=== PATIENT | female | born 1930 | race Caucasian/White ===

== ENCOUNTER 2017-09-06 10:39 | Inpatient (IN) | payer MEDICARE ==
[~2017-09-06] VITALS: Ht 165.1 cm; Wt 49.9 kg
[2017-09-06 11:08] VITALS: BP 142/71
[2017-09-06 11:56] LABS: BASOPHILS % (AUTO) 0.4 % (0.0-2.0); EOSINOPHILS % (AUTO) 0.1 % (0.0-3.0); LYMPHOCYTES % (AUTO) 13.9 % (20.0-45.0); MEAN CORPUSCULAR HEMOGLOBIN 28.3 PG (27.0-31.0); MEAN CORPUSCULAR HGB CONC 31.6 G/DL (32.0-36.0); MEAN CORPUSCULAR VOLUME 90 FL (80-99); MEAN PLATELET VOLUME 6.3 FL (6.5-10.1); MONOCYTES % (AUTO) 3.6 % (1.0-10.0); PLATELET COUNT 250 K/UL (150-450); RED BLOOD COUNT 4.76 M/UL (4.20-5.40); RED CELL DISTRIBUTION WIDTH 13.5 % (11.6-14.8); WHITE BLOOD COUNT 9.4 K/UL (4.8-10.8)
[2017-09-06 12:11] LABS: PROTHROMBIN TIME 10.9 SEC (9.30-11.50)
[2017-09-06 12:49] LABS: ALANINE AMINOTRANSFERASE 14 U/L (12-78); ALBUMIN/GLOBULIN RATIO 0.8 (1.0-2.7); ANION GAP 9 (5-15); ASPARTATE AMINO TRANSFERASE 16 U/L (15-37); CALCIUM 9.3 MG/DL (8.5-10.1); CARBON DIOXIDE 30 MMOL/L (21-32); CHLORIDE 102 MMOL/L (98-107); LIPASE 386 U/L (73-393); POTASSIUM 3.5 MMOL/L (3.5-5.1); SODIUM 141 MMOL/L (136-145); TOTAL PROTEIN 7.4 G/DL (6.4-8.2)
[2017-09-06 13:15] VITALS: BP 151/63
[2017-09-06 13:24] LABS: APPEARANCE,URINE SLIGHTLY CLOUDY; KETONES,URINE NEGATIVE (NEGATIVE); LEUKOCYTE ESTERASE ,URINE NEGATIVE (NEGATIVE); NITRITE,URINE NEGATIVE (NEGATIVE); PH,URINE 7 (4.5-8.0); PROTEIN,URINE NEGATIVE (NEGATIVE); UROBILINOGEN,URINE NORMAL MG/DL (0.0-1.0)
[2017-09-06 14:13] LABS: SQUAMOUS EPITHELIAL CELL,UR MODERATE /LPF (NONE/OCC); WBC,URINE 0-2 /HPF (0 - 2)
[2017-09-06 14:14] LABS: BACTERIA,URINE FEW /HPF; MUCUS,URINE FEW /LPF (NONE/OCC)
--- NOTE | 2017-09-06 14:34 | Diagnostic Imaging Report ---
Indication: Abdominal pain Technique: Continuous helical transaxial imaging of the abdomen and pelvis was obtained from the lung bases to the pubic symphysis during intravenous contrast administration. Coronal 2-D reformats were also obtained. Study obtained in a Siemens sensation [address] Total Dose length Product (DLP): [address] Dose Index Volume (CTDIvol): 11.9, 0.15 mGy Comparison: None Findings: Lung bases are clear. The liver and spleen, pancreas, gallbladder appear unremarkable. No adrenal mass seen. There are a few small bilateral renal cysts. The right kidney is malrotated. The ureters are not well seen but there is no definite hydronephrosis. Arterial calcifications are present. There is a small right inguinal hernia containing fat. There is an abdominal wall mesh anteriorly in the lower part of the abdomen. Old fractures are noted involving the left ilium and pubis. Bones are osteopenic. Diverticula demonstrated within the sigmoid colon. There is thickening of the wall of the rectum and perirectal soft tissue stranding small right Hutch diverticula noted involving the urinary bladder. Is there is severe compression fracture deformity of the T12 vertebra likely old. Hemangioma the L1 vertebra noted with linear striations. Anterolisthesis of L4 on 5 with narrowing of the disc and vacuum, demonstrated. Hypertrophied facets noted in the lower lumbar spine. Impression: Evidence of a proctitis with rectal wall thickening and perirectal inflammation. Please correlate clinically. Extensive sigmoid diverticulosis. Right bladder diverticulum. Atherosclerotic disease Old severe T12 vertebral compression fracture. Osteoporosis L1 hemangioma. . Old pelvic trauma. Evidence of previous lower anterior abdominal wall hernia repair. A small right inguinal hernia containing fat. Malrotation of the right kidney. The CT scanner at [facility] is accredited by the [employer] and the scans are performed using dose optimization techniques as appropriate to a performed exam including Automatic Exposure control.
--- NOTE | 2017-09-06 14:58 | Emergency Room Report ---
History of Present Illness General Chief Complaint: Abdominal Pain Source: Patient, Significant Other Present Illness HPI This patient presents with recurrent vomiting and diarrhea for the past 24 hours. The patient states that she vomited about 20 times in the past 12 hours. She states that she was unable to sleep. She was unable to tolerate breakfast this morning. She also has had abdominal pain in the right lower quadrant. She denies fevers or chills. She states that she is significantly improved right now. She has not tried to take anything orally since earlier this morning. She denies dysuria or hematuria. She denies chest pain or shortness of breath. She has no other complaints. Allergies: Coded Allergies: No Known Allergies (Unverified , 09/06/17) Patient History Past Medical History: see triage record, HTN, dementia Social History: Denies: smoking, alcohol use, drug use Last Menstrual Period: postmenapause Now: No Reviewed Nursing Documentation: PMH: Agreed, PSxH: Agreed Nursing Documentation-PMH Past Medical History: No History, Except For Hx Cardiac Problems: No Hx Hypertension: Yes Hx Pacemaker: No Hx Asthma: No Hx COPD: No Hx Diabetes: No Hx Cancer: No Hx Gastrointestinal Problems: No Hx Dialysis: No History Of Psychiatric Problem: No Hx Neurological Problems: No Hx Cerebrovascular Accident: No Hx Seizures: No Review of Systems All Other Systems: negative except mentioned in HPI Physical Exam Vital Signs Date Time Temp Pulse Resp B/P (MAP) Pulse Ox O2 Delivery O2 Flow Rate FiO2 09/06/17 10:59 97.0 54 12 139/72 97 Room Air Sp02 EP Interpretation: reviewed, normal General Appearance: no apparent distress, alert, GCS 15, non-toxic Head: normocephalic, atraumatic Eyes: bilateral eye normal inspection, bilateral eye PERRL ENT: hearing grossly normal, normal pharynx, no angioedema, normal voice Neck: full range of motion, supple/symm/no masses Respiratory: chest non-tender, lungs clear, normal breath sounds, speaking full sentences Cardiovascular #1: regular rate, rhythm, no edema Gastrointestinal: normal bowel sounds, soft, non-distended, no guarding, no rebound, tenderness - RLQ ttp Rectal: deferred Musculoskeletal: back normal, gait/station normal, normal range of motion, non- tender Neurologic: alert, oriented x3, responsive, motor strength/tone normal, sensory intact, speech normal Psychiatric: mood/affect normal, no suicidal/homicidal ideation Skin: normal color, no rash, warm/dry, well hydrated Medical Decision Making Diagnostic Impression: Primary Impression: Gastroenteritis Additional Impression: Proctitis ER Course This 86-year-old female presents with nausea, vomiting and abdominal pain. She is found to have a proctitis on CT of abdomen and pelvis. She is given IV Cipro and Flagyl and IV fluids. She will be admitted for further evaluation, treatment and monitoring on the medical surgical floor. Laboratory Tests Test 09/06/17 11:09 09/06/17 12:58 White Blood Count 9.4 K/UL (4.8-10.8) Red Blood Count 4.76 M/UL (4.20-5.40) Hemoglobin 13.5 G/DL (12.0-16.0) Hematocrit 42.7 % (37.0-47.0) Mean Corpuscular Volume 90 FL (80-99) Mean Corpuscular Hemoglobin 28.3 PG (27.0-31.0) Mean Corpuscular Hemoglobin Concent 31.6 G/DL (32.0-36.0) L Red Cell Distribution Width 13.5 % (11.6-14.8) Platelet Count 250 K/UL (150-450) Mean Platelet Volume 6.3 FL (6.5-10.1) L Neutrophils (%) (Auto) 82.0 % (45.0-75.0) H Lymphocytes (%) (Auto) 13.9 % (20.0-45.0) L Monocytes (%) (Auto) 3.6 % (1.0-10.0) Eosinophils (%) (Auto) 0.1 % (0.0-3.0) Basophils (%) (Auto) 0.4 % (0.0-2.0) Prothrombin Time 10.9 SEC (9.30-11.50) Prothrombin Time INR 1.0 (0.9-1.1) PTT 26 SEC (23-33) Sodium Level 141 MMOL/L (136-145) Potassium Level 3.5 MMOL/L (3.5-5.1) Chloride Level 102 MMOL/L (98-107) Carbon Dioxide Level 30 MMOL/L (21-32) Anion Gap 9 (5-15) Blood Urea Nitrogen 24 mg/dL (7-18) H Creatinine 1.0 MG/DL (0.55-1.30) Estimate Glomerular Filtration Rate mL/min (>60) Glucose Level 115 MG/DL (74-106) H Lactic Acid Level 1.40 mmol/L (0.66-2.22) Calcium Level 9.3 MG/DL (8.5-10.1) Total Bilirubin 0.5 MG/DL (0.2-1.0) Aspartate Amino Transferase (AST) 16 U/L (15-37) Alanine Aminotransferase (ALT) 14 U/L (12-78) Alkaline Phosphatase 61 U/L (46-116) Total Protein 7.4 G/DL (6.4-8.2) Albumin 3.4 G/DL (3.4-5.0) Globulin 4.0 g/dL Albumin/Globulin Ratio 0.8 (1.0-2.7) L Lipase 386 U/L (73-393) Urine Color Pale yellow Urine Appearance Slightly cloudy Urine pH 7 (4.5-8.0) Urine Specific [place] 1.015 (1.005-1.035) Urine Protein Negative (NEGATIVE) Urine Glucose (UA) Negative (NEGATIVE) Urine Ketones Negative (NEGATIVE) Urine Occult Blood 1+ (NEGATIVE) H Urine Nitrite Negative (NEGATIVE) Urine Bilirubin Negative (NEGATIVE) Urine Urobilinogen Normal MG/DL (0.0-1.0) Urine Leukocyte Esterase Negative (NEGATIVE) Urine RBC 2-4 /HPF (0 - 2) H Urine WBC 0-2 /HPF (0 - 2) Urine Squamous Epithelial Cells Moderate /LPF (NONE/OCC) H Urine Bacteria Few /HPF (NONE) Urine Mucus Few /LPF (NONE/OCC) H EKG Diagnostic Results Rate: bradycardiac Rhythm: other - S.merlin ST Segments: no acute changes Rhythm Strip Diag. Results EP Interpretation: yes Rate: 50's Rhythm: no PVC's, no ectopy, other - S.emrlin CT/MRI/US Diagnostic Results CT/MRI/US Diagnostic Results : Imaging Test Ordered: CT abd/pelvis Impression Evidence of a proctitis with rectal wall thickening and perirectal inflammation. Please correlate clinically. Extensive sigmoid diverticulosis. Right bladder diverticulum. Atherosclerotic disease Old severe T12 vertebral compression fracture. Osteoporosis L1 hemangioma. . Old pelvic trauma. Evidence of previous lower anterior abdominal wall hernia repair. A small right inguinal hernia containing fat. Malrotation of the right kidney. Last Vital Signs Date Time Temp Pulse Resp B/P (MAP) Pulse Ox O2 Delivery O2 Flow Rate FiO2 09/06/17 11:08 97.0 52 22 142/71 99 Room Air Disposition: ADMITTED INPATIENT Condition: Stable Referrals: CAR MARTINEZ (PCP) BE PUCKETT D.O. Sep 06, 2017 14:58
[2017-09-06 16:14] VITALS: BP 151/63
[2017-09-06] MEDS ORDERED: UNOBMED (17:00)
[2017-09-06] MEDS ORDERED: LORazepam Inj 2mg/ml 1ml IV ONE (17:00)
[2017-09-06] MEDS ORDERED: LEXAPRO10 MG ORAL (17:05)
[2017-09-06] MEDS ORDERED: LUMIGAN2.5 ML BOTH EYES ×2 (17:05→20:10)
[2017-09-06] MEDS ORDERED: VITAMIN D-32000 UNI2 PO (17:05)
[2017-09-06] MEDS ORDERED: NUEDEXTA 20-101 EAC1 PO (17:05)
[2017-09-06] MEDS ORDERED: BISACODYL5 MG ORAL (17:05)
[2017-09-06] MEDS ORDERED: POLYETHYLENE GL17 GM ORAL (17:05)
[2017-09-06] MEDS ORDERED: CALCIUM 600 +1 EA15 PO (17:05)
[2017-09-06] MEDS ORDERED: VITAMIN C500 M1 ORAL (17:05)
[2017-09-06] MEDS ORDERED: VITAMIN B122500 MCG PO (17:05)
[2017-09-06] MEDS ORDERED: TRAZODONE HCL150 MG ORAL (17:05)
--- NOTE | 2017-09-06 19:42 | Geriatric Progress Note ---
Subjective Interval Events 86 y/o with diarrhea x 3, vomiting x 4 starting last night. No known fever, chills. No others who ate with her with similar sxs. Currently with aphasic incoherent speech c/w baseline. No overt distress. Unable to answer questions in coherent fashion. PMH: 3-4 year hx of increasing anxiety, cognitive changes, depressive changes. Recently placed on Nuedexta, Escitalopram with some improvement. Hx of SBO several years ago, associated with hernia, repaired with mesh. 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 Initially, presented in 06/14 with c/o rectal pain, found to have coccydynia and stool impaction. Bowel tx initiated, donut cushion utilized. Sxs improved considerably. Today findings in ER of proctitis. Given IVF, admitted for GI evaluation, Dr. Shaw consulted. Meds: Vit C 500mg daily. Lumigan 0.01% 1 gtt OU daily. Bisacodyl 10mg qhs. Bone Essentials 2 caps daily. Cholecalciferol 1000u daily. B12 1000mcg daily. Nuedexta 20/10 bid. Donepezil 5mg qhs. Escitalopram 10mg daily. MiraLax 17gm bid. Trazodone 25-50mg qhs. PE: Chest clear. CV RR Abd benign Ext no edema Imp: ? proctitis - ? mechanical, infectious, inflammatory. Await GI eval. Continue usual meds. Discussed in detail with dtr. Full code. Dictated #[id number]. Geriatric Geriatric Last 24 Hour Vital Signs Date Time Temp Pulse Resp B/P (MAP) Pulse Ox O2 Delivery O2 Flow Rate FiO2 09/06/17 17:13 97.0 55 13 151/63 100 Room Air 09/06/17 16:14 97.0 55 13 151/63 100 Room Air 09/06/17 13:15 97.3 55 12 151/63 100 Room Air 09/06/17 11:08 97.0 52 22 142/71 99 Room Air 09/06/17 10:59 97.0 54 12 139/72 97 Room Air Intake and Output 09/06/17 09/07/17 19:00 07:00 Output Total 50 ml Balance -50 ml Output Emesis 50 ml Laboratory Tests Test 09/06/17 11:09 09/06/17 12:58 White Blood Count 9.4 K/UL (4.8-10.8) Red Blood Count 4.76 M/UL (4.20-5.40) Hemoglobin 13.5 G/DL (12.0-16.0) Hematocrit 42.7 % (37.0-47.0) Mean Corpuscular Volume 90 FL (80-99) Mean Corpuscular Hemoglobin 28.3 PG (27.0-31.0) Mean Corpuscular Hemoglobin Concent 31.6 G/DL (32.0-36.0) L Red Cell Distribution Width 13.5 % (11.6-14.8) Platelet Count 250 K/UL (150-450) Mean Platelet Volume 6.3 FL (6.5-10.1) L Neutrophils (%) (Auto) 82.0 % (45.0-75.0) H Lymphocytes (%) (Auto) 13.9 % (20.0-45.0) L Monocytes (%) (Auto) 3.6 % (1.0-10.0) Eosinophils (%) (Auto) 0.1 % (0.0-3.0) Basophils (%) (Auto) 0.4 % (0.0-2.0) Prothrombin Time 10.9 SEC (9.30-11.50) Prothromb Time International Ratio 1.0 (0.9-1.1) Activated Partial Thromboplast Time 26 SEC (23-33) Sodium Level 141 MMOL/L (136-145) Potassium Level 3.5 MMOL/L (3.5-5.1) Chloride Level 102 MMOL/L (98-107) Carbon Dioxide Level 30 MMOL/L (21-32) Anion Gap 9 (5-15) Blood Urea Nitrogen 24 mg/dL (7-18) H Creatinine 1.0 MG/DL (0.55-1.30) Estimat Glomerular Filtration Rate mL/min (>60) Glucose Level 115 MG/DL (74-106) H Lactic Acid Level 1.40 mmol/L (0.66-2.22) Calcium Level 9.3 MG/DL (8.5-10.1) Total Bilirubin 0.5 MG/DL (0.2-1.0) Aspartate Amino Transf (AST/SGOT) 16 U/L (15-37) Alanine Aminotransferase (ALT/SGPT) 14 U/L (12-78) Alkaline Phosphatase 61 U/L (46-116) Total Protein 7.4 G/DL (6.4-8.2) Albumin 3.4 G/DL (3.4-5.0) Globulin 4.0 g/dL Albumin/Globulin Ratio 0.8 (1.0-2.7) L Lipase 386 U/L (73-393) Urine Color Pale yellow Urine Appearance Slightly cloudy Urine pH 7 (4.5-8.0) Urine Specific [place] 1.015 (1.005-1.035) Urine Protein Negative (NEGATIVE) Urine Glucose (UA) Negative (NEGATIVE) Urine Ketones Negative (NEGATIVE) Urine Occult Blood 1+ (NEGATIVE) H Urine Nitrite Negative (NEGATIVE) Urine Bilirubin Negative (NEGATIVE) Urine Urobilinogen Normal MG/DL (0.0-1.0) Urine Leukocyte Esterase Negative (NEGATIVE) Urine RBC 2-4 /HPF (0 - 2) H Urine WBC 0-2 /HPF (0 - 2) Urine Squamous Epithelial Cells Moderate /LPF (NONE/OCC) H Urine Bacteria Few /HPF (NONE) Urine Mucus Few /LPF (NONE/OCC) H Height (Feet): 5 Height (Inches): 0.00 Weight (Pounds): 110 CAR MARTINEZ Sep 06, 2017 19:42
[2017-09-06 20:00] VITALS: BP 134/81
[2017-09-06] MEDS ORDERED: Latanoprost 0.005% Opth 2.5ml Soln BOTH EYES SCH (21:00)
[2017-09-06 21:18] VITALS: BP 134/81
[2017-09-06] MEDS: Ramelteon 8mg tab (Approved for Delirium use only) ORAL SCH (22:12)
[2017-09-06] MEDS: Nuedexta Capsule 20/10mg ORAL SCH (22:12)
[2017-09-06] MEDS: LUMIGAN 0.01% BOTH EYES SCH (22:12)
[2017-09-06] MEDS: Donepezil 5mg Tab ORAL SCH (22:13)
[2017-09-07 04:00] VITALS: BP 155/75
--- NOTE | 2017-09-07 07:59 | General Progress Note ---
Assessment/Plan Assessment/Plan GI Consult Dictated Assessment - Chronic constipation - Acute/ resolved N/V/D - ? gastroeteritis - h/o rectal stool impaction - rectal inflammation - possibly solitary rectal ulcer - Dementia Recommendation - po diet - as tolerated - hog scraper Mirlax - follow symptoms - Flex sig - will try to schedule for tomorrow AM Subjective Allergies: Coded Allergies: No Known Allergies (Unverified , 09/06/17) Objective Last 24 Hour Vital Signs Date Time Temp Pulse Resp B/P (MAP) Pulse Ox O2 Delivery O2 Flow Rate FiO2 09/07/17 04:00 97.8 53 16 155/75 96 Room Air 09/06/17 21:18 98.7 58 18 134/81 96 Room Air 09/06/17 20:00 98.7 58 18 134/81 96 Room Air 09/06/17 17:13 97.0 55 13 151/63 100 Room Air 09/06/17 16:14 97.0 55 13 151/63 100 Room Air 09/06/17 13:15 97.3 55 12 151/63 100 Room Air 09/06/17 11:08 97.0 52 22 142/71 99 Room Air 09/06/17 10:59 97.0 54 12 139/72 97 Room Air Laboratory Tests 09/06/17 11:09: White Blood Count 9.4, Red Blood Count 4.76, Hemoglobin 13.5, Hematocrit 42.7, Mean Corpuscular Volume 90, Mean Corpuscular Hemoglobin 28.3, Mean Corpuscular Hemoglobin Concent 31.6L, Red Cell Distribution Width 13.5, Platelet Count 250, Mean Platelet Volume 6.3L, Neutrophils (%) (Auto) 82.0H, Lymphocytes (%) (Auto) 13.9L, Monocytes (%) (Auto) 3.6, Eosinophils (%) (Auto) 0.1, Basophils (%) (Auto ) 0.4, Prothrombin Time 10.9, Prothromb Time International Ratio 1.0, Activated Partial Thromboplast Time 26, Sodium Level 141, Potassium Level 3.5, Chloride Level 102, Carbon Dioxide Level 30, Anion Gap 9, Blood Urea Nitrogen 24H, Creatinine 1.0, Estimat Glomerular Filtration Rate , Glucose Level 115H, Lactic Acid Level 1.40, Calcium Level 9.3, Total Bilirubin 0.5, Aspartate Amino Transf (AST/SGOT) 16, Alanine Aminotransferase (ALT/SGPT) 14, Alkaline Phosphatase 61, Total Protein 7.4, Albumin 3.4, Globulin 4.0, Albumin/Globulin Ratio 0.8L, Lipase 386 09/06/17 12:58: Urine Color Pale yellow, Urine Appearance Slightly cloudy, Urine pH 7, Urine Specific [place] 1.015, Urine Protein Negative, Urine Glucose (UA) Negative, Urine Ketones Negative, Urine Occult Blood 1+H, Urine Nitrite Negative, Urine Bilirubin Negative, Urine Urobilinogen Normal, Urine Leukocyte Esterase Negative , Urine RBC 2-4H, Urine WBC 0-2, Urine Squamous Epithelial Cells ModerateH, Urine Bacteria Few, Urine Mucus FewH Height (Feet): 5 Height (Inches): 0.00 Weight (Pounds): 110 KRISTIAN BOB Sep 07, 2017 07:59
[2017-09-07 08:00] VITALS: BP 132/66
[2017-09-07 08:41] LABS: BASOPHILS % (AUTO) 0.6 % (0.0-2.0); EOSINOPHILS % (AUTO) 1.3 % (0.0-3.0); MEAN CORPUSCULAR HEMOGLOBIN 29.2 PG (27.0-31.0); MEAN CORPUSCULAR HGB CONC 32.5 G/DL (32.0-36.0); MEAN CORPUSCULAR VOLUME 90 FL (80-99); MEAN PLATELET VOLUME 6.6 FL (6.5-10.1); MONOCYTES % (AUTO) 8.6 % (1.0-10.0); NEUTROPHILS % (AUTO) 68.5 % (45.0-75.0); PLATELET COUNT 195 K/UL (150-450); RED BLOOD COUNT 3.96 M/UL (4.20-5.40); RED CELL DISTRIBUTION WIDTH 13.6 % (11.6-14.8); WHITE BLOOD COUNT 6.2 K/UL (4.8-10.8)
[2017-09-07] MEDS: LUMIGAN 0.01% BOTH EYES SCH ×2 (09:00→20:07)
[2017-09-07] MEDS: Nuedexta Capsule 20/10mg ORAL SCH ×2 (09:00→20:08)
[2017-09-07 09:25] LABS: ANION GAP 8 (5-15); CALCIUM 8.3 MG/DL (8.5-10.1); CARBON DIOXIDE 27 MMOL/L (21-32); CHLORIDE 108 MMOL/L (98-107); CREATININE 0.9 MG/DL (0.55-1.30); POTASSIUM 3.2 MMOL/L (3.5-5.1); SODIUM 143 MMOL/L (136-145)
--- NOTE | 2017-09-07 12:00 | History and Physical Report ---
DATE OF ADMISSION: 09/06/2017 IDENTIFYING DATA: The patient is an 86-year-old woman, who developed diarrhea and vomiting and was brought to the emergency room. HISTORY OF PRESENT ILLNESS: This is a patient with a history of significant cognitive dysfunction with associated anxiety, episodic agitation, and associated behavioral dysfunction. The patient was first seen in the office after moving from [place] in May of this year, at which time she had been in [facility] facility for approximately two weeks. She complained of pain in her rectal area. On examination at that time, the patient was noted to have variable ability to concentrate and respond, but she was at times able to follow simple directions and cross the midline. She was noted to have tenderness in the coccyx area and on rectal examination, was noted to have significant coccydynia. In addition, she had a large amount of stool, which was soft, present in the rectum. As a result, the patient was put on a bowel regimen to improve irregular bowel movements and also she was recommended to have a doughnut cushion in order to diminish her symptoms. Over the course of a number of weeks, apparently the patient improved considerably, however, she continued to have a significant amount of lability and anxiety and her medication regimen has included the addition of Nuedexta as well as antidepressant, Lexapro. With this, her behavior apparently has improved somewhat. The patient was also treated for urinary tract infection. Apparently over the last week, the patient's daughter has been visiting her from [place]. She reports that the patient has been physically relatively robust, although with a fair amount of anxiety and had been eating normal. Last evening, the patient apparently began to develop both recurrent vomiting of undigested food as well as recurrent diarrhea. Because of the reported vomiting and diarrhea, the patient was asked to present to the emergency department at [facility] for further evaluation. In the emergency department, the patient was noted to have somewhat dysphasic and incoherent speech consistent with her baseline. Detailed history or even review of systems was not readily obtainable from the patient because of her language and cognitive deficits. Evaluation included laboratory work, which revealed no evidence of leukocytosis and fairly normal chemistry and normal urinalysis. However, an abdominopelvic CT scan was done and this revealed several abnormalities including evidence of proctitis with rectal wall thickening and perirectal inflammation, extensive sigmoid diverticulosis, right bladder diverticulum, arteriosclerotic disease, an old severe T12 vertebral compression fracture, osteoporosis, a left hemangioma, previous lower anterior abdominal wall hernia repair, and a small right inguinal hernia containing fat, malrotation of the right kidney, old pelvic trauma with pelvic fractures, which were healed, and it was felt that the patient's symptoms might be associated with the radiologically apparent proctitis. The patient was therefore admitted for further evaluation and treatment. In the emergency room, the patient was treated also with intravenous hydration and the administration of metronidazole and ciprofloxacin. PAST MEDICAL HISTORY: The patient's past medical history as based on previous evaluations and also on additional history obtained from the patient's daughter at this time includes a [id number]-lt-dwst-year history of increasing anxiety, cognitive changes, and depressive changes. There is a history of an episode of small bowel obstruction several years ago apparently associated with a lower abdominal hernia, which subsequently was repaired with a mesh. 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 Other details of the patient's medical history are not currently available at this time. CURRENT MEDICATIONS: Vitamin C 500 mg daily, Lumigan 0.1% one drop OU at bedtime, Dulcolax 10 mg at bedtime, Bone Essentials two capsules daily, vitamin D3 1000 units daily, vitamin B12 1000 mcg daily, Nuedexta 20/10 b.i.d., donepezil 5 mg at bedtime, Lexapro 10 mg daily, MiraLAX 17 grams b.i.d., Fleet enema p.r.n., and trazodone 25 to 50 mg at bedtime. ALLERGIES: No known allergies. SOCIAL HISTORY: The patient lived in [place] on the [facility] until apparently this year. She was living with her , who approximately two years ago. She had stayed in the apartment, but then was moved to [place] to be closer to her son, Jasiel, who lives in [place]. Her daughter has lived in [place] for more than 25 years. FAMILY HISTORY: Not directly contributory. REVIEW OF SYSTEMS: The patient is currently responsive with garbled speech and it is difficult to ascertain any details about her current status. When asked if she is having any pain or discomfort, responses are inconsistent. PHYSICAL EXAMINATION: VITAL SIGNS: The patient's blood pressure is 151/63, heart rate 55 and regular, respiratory rate is 13, temperature of 97 degrees, and pulse ox of 100% on room air. GENERAL: The patient is a well-developed woman, at times anxious and at times quiet, not in obvious acute physical distress, but reporting that she has some kind of abdominal symptoms, which she does not characterize very clearly. HEAD AND NECK: Reveals normocephalic and atraumatic skull. Sclerae appeared to be anicteric. The oropharynx reveals slightly dry mucosa, but is otherwise clear. NECK: Shows normal range of motion without masses appreciated. CARDIAC: Reveals a regular rhythm. CHEST: Appears to be clear to auscultation. BREASTS: Without dominant masses. ABDOMEN: Reveals normal bowel sounds. The abdomen is soft without clear distention or tenderness and no overt masses or organomegaly appreciated. RECTAL: Not attempted at this time. EXTREMITIES: Revealed no dependent edema and no evidence of acute cellulitis. LABORATORY AND DIAGNOSTIC DATA: Her laboratory data includes a white count of 9.4, hematocrit 42.7%, MCV of 90, and platelet count of 250,000 with minimal left shift. The INR is 1.0 with a PTT of 26. Sodium 141, potassium 3.5, chloride 102, bicarb 30, BUN 24, creatinine 1.0, glucose 115, lactate 1.4, and calcium 9.3. Total bilirubin 0.5. AST 16, ALT 14, and alkaline phosphatase 61. Total protein 7.4. Albumin 3.4. Lipase 386. Urinalysis showed 1+ occult blood, 2 to 4 rbc's, 0 to 2 wbc's, moderate squamous epithelial cells, few bacteria, negative leukocyte esterase, and negative nitrites. The abdominal and pelvis CT results are as noted above. IMPRESSION AND PLAN: The patient presents with acute nausea, vomiting, and some suggestion of volume depletion on her laboratory results, although not profound. Whether this represents an incidental gastroenteritis or represents symptoms associated with significant proctitis or perhaps other gastrointestinal pathology is not entirely clear at this point. However, given the repetitive vomiting and diarrhea and the patient's inability to fully describe her symptomatology, it was felt that the patient should be admitted to the hospital for intravenous hydration, coverage with empirical antibiotics, and gastrointestinal evaluation. With respect to the latter, Dr. Cristina Shaw has been contacted to see the patient and determine whether a colonoscopic or sigmoidoscopic examination might be appropriate. Because of the diarrhea, the patient's bowel regimen will be held for the time being. The situation was discussed with the patient's daughter, who was quite concerned because apparently the patient in the past has had episodes of severe delirium and agitation after hospitalization. She was reassured that attempts will be made to try and manage the patient to minimize the risk of delirium. In that regard, the patient will be prescribed Rozerem at bedtime as potential prophylaxis against the delirium as well as her usual medications and the intravenous antibiotics. Additional interventions will be considered after the patient's response to therapy and further diagnostic results are available. Jamel Cedeno M.D. DR: TAYLER JOB#: [id number] CC: GILLIAN
[2017-09-07 12:02] VITALS: BP 134/61
[2017-09-07 16:07] VITALS: BP 157/74
--- NOTE | 2017-09-07 18:26 | Geriatric Progress Note ---
Assessment/Plan Problems: (1) Volume depletion (2) Hypokalemia (3) Chronic constipation (4) Cognitive dysfunction (5) Depression (6) Proctitis Assessment/Plan Patient improved with hydration. Flex sig per Dr. Shaw. No delirium with Rozerem thus far. Mobilize with P.T. Recheck labs. Discussed with: patient, family, hospital staff Subjective Interval Events Patient mildly anxious, not denies physical distress. Slept well with Rozerem, no delirium noted today. Dtr now reports she is having some nausea and loose stools, making viral gastroenteritis or food poisoning somewhat more likely. Seen by Dr. Shaw, ? stercoral ulceration or localized proctitis. Planning flex sig. Labs unremarkable. Constitutional: Denies: chills, pain, fever Respiratory: Denies: shortness of breath Cardiovascular: Denies: chest pain, palpitations Gastrointestinal/Abdominal: Denies: diarrhea, nausea, vomiting Genitourinary: Denies: dysuria Geriatric Geriatric Last 24 Hour Vital Signs Date Time Temp Pulse Resp B/P (MAP) Pulse Ox O2 Delivery O2 Flow Rate FiO2 09/07/17 16:07 98.2 56 16 157/74 96 Room Air 09/07/17 12:02 98.0 50 18 134/61 95 Room Air 09/07/17 08:00 98.4 88 18 132/66 95 Room Air 09/07/17 04:00 97.8 53 16 155/75 96 Room Air 09/06/17 21:18 98.7 58 18 134/81 96 Room Air 09/06/17 20:00 98.7 58 18 134/81 96 Room Air Intake and Output 09/07/17 09/08/17 19:00 07:00 Intake Total 620 ml Balance 620 ml Intake Oral 120 ml IV Total 500 ml # Voids 2 Laboratory Tests Test 09/07/17 07:30 White Blood Count 6.2 K/UL (4.8-10.8) Red Blood Count 3.96 M/UL (4.20-5.40) L Hemoglobin 11.5 G/DL (12.0-16.0) L Hematocrit 35.5 % (37.0-47.0) L Mean Corpuscular Volume 90 FL (80-99) Mean Corpuscular Hemoglobin 29.2 PG (27.0-31.0) Mean Corpuscular Hemoglobin Concent 32.5 G/DL (32.0-36.0) Red Cell Distribution Width 13.6 % (11.6-14.8) Platelet Count 195 K/UL (150-450) Mean Platelet Volume 6.6 FL (6.5-10.1) Neutrophils (%) (Auto) 68.5 % (45.0-75.0) Lymphocytes (%) (Auto) 21.0 % (20.0-45.0) Monocytes (%) (Auto) 8.6 % (1.0-10.0) Eosinophils (%) (Auto) 1.3 % (0.0-3.0) Basophils (%) (Auto) 0.6 % (0.0-2.0) Sodium Level 143 MMOL/L (136-145) Potassium Level 3.2 MMOL/L (3.5-5.1) L Chloride Level 108 MMOL/L (98-107) H Carbon Dioxide Level 27 MMOL/L (21-32) Anion Gap 8 (5-15) Blood Urea Nitrogen 16 mg/dL (7-18) Creatinine 0.9 MG/DL (0.55-1.30) Estimat Glomerular Filtration Rate mL/min (>60) Glucose Level 95 MG/DL (74-106) Calcium Level 8.3 MG/DL (8.5-10.1) L Current Medications Medications (Trade) Dose Ordered Sig/Jillian Route PRN Reason Start Time Stop Time Status Last Admin Dose Admin Ciprofloxacin 200 ml @ 200 mls/hr Q12H IV 09/07/17 04:00 09/14/17 03:59 09/07/17 15:10 Dextromethorphan/ Quinidine (Nuedexta Capsule) 1 cap Q12HR ORAL 09/06/17 21:00 10/06/17 20:59 09/06/17 22:12 Donepezil HCl (Aricept) 5 mg QHS ORAL 09/06/17 21:00 10/06/17 20:59 09/06/17 22:13 Escitalopram Oxalate (Lexapro) 10 mg DAILY ORAL 09/07/17 09:00 10/07/17 08:59 Metronidazole 100 ml @ 100 mls/hr Q8H IVPB 09/07/17 03:00 09/14/17 02:59 09/07/17 10:43 Patient Own Medication (Patient's Own Med) 1 ea Q12HR BOTH EYES 09/06/17 21:00 10/06/17 20:59 09/06/17 22:12 Ramelteon (Rozerem) 8 mg QHS ORAL 09/06/17 21:00 10/06/17 20:59 09/06/17 22:12 Height (Feet): 5 Height (Inches): 0.00 Weight (Pounds): 110 General Appearance: alert, non-toxic, other - appears somewhat dysthymic Head: normocephalic, atraumatic Eyes: bilateral anicteric ENT: normal voice Neck: full range of motion, no mass Respiratory: lungs clear Cardiovascular: regular rate, rhythm Gastrointestinal: normal bowel sounds, non tender, soft, no mass, no organomegaly, non-distended Musculoskeletal: no calf tenderness CAR MARTINEZ Sep 07, 2017 18:26
[2017-09-07 20:00] VITALS: BP 134/60
[2017-09-07] MEDS: Donepezil 5mg Tab ORAL SCH (20:08)
[2017-09-07] MEDS: Ramelteon 8mg tab (Approved for Delirium use only) ORAL SCH (20:08)
[2017-09-08] VITALS (9 sets, daily range): BP systolic 139–163; BP diastolic 67–83
[2017-09-08] MEDS ORDERED: Fleet's Enema 133ml RECTAL ONE ×2 (05:00→05:45)
--- NOTE | 2017-09-08 06:30 | Consultation ---
DATE OF CONSULTATION: 09/07/2017 GASTROENTEROLOGY CONSULTATION CONSULTING PHYSICIAN: Cristina Shaw M.D. REFERRING PHYSICIAN: Jamel Cedeno M.D. CHIEF COMPLAINT: I was asked to see this patient by Dr. Jamel Cedeno for evaluation of abnormal CT scan. HISTORY OF PRESENT ILLNESS: This patient is an 86-year-old white woman with dementia, who was admitted to the hospital due to 1-day history of nausea, vomiting, and diarrhea. The patient also has a longstanding history of chronic constipation, for which she takes a combination of MiraLAX and stool softeners. In the past, she was on lactulose in [place]. The patient has not had any recent endoscopy or colonoscopy per daughter. She resides in an assisted living facility due to her chronic dementia. Her son lives here in [facility] and daughter lives in [place]. The patient herself is unable to provide any history. Most of the history is only available from the chart. The patient does not offer any complaints. PAST MEDICAL HISTORY: History of anxiety; dementia; depression; history of bowel obstruction several years ago, status post surgical repair; history of hysterectomy for tumor 3 years ago; and past history of rectal stool impaction. SOCIAL HISTORY: The patient does not smoke or drink alcohol. She resides at a [facility]. Her daughter looks after her. FAMILY HISTORY: Noncontributory. REVIEW OF SYSTEMS: Otherwise negative. PHYSICAL EXAMINATION: GENERAL: Debilitated, elderly woman, seen in her room with her daughter at bedside. HEENT: Normocephalic and atraumatic. Sclerae anicteric. Oropharynx clear. NECK: Supple. CHEST: Clear to auscultation. CARDIOVASCULAR: Regular rate. ABDOMEN: Soft, flat. Good bowel sounds. There is an old healed scar. EXTREMITIES: No edema. NEUROLOGIC: Notable for advanced dementia. LABORATORY AND DIAGNOSTIC DATA: Laboratory data was noted. ASSESSMENT: This patient has a longstanding history of constipation, which needs to be treated on a long-term basis with MiraLAX or equivalent agents. Therefore, daughter was advised the patient's dose of MiraLAX needs to titrated to provide adequate relief of the chronic constipation. Within differential of rectal findings on CT scan is also a solitary rectal ulcer in the setting of chronic constipation in this age group. A flexible sigmoidoscopy examination can evaluate this finding. The patient has had acute onset of nausea, vomiting, and diarrhea, which has also acutely and quickly resolved. This is most likely consistent with a viral gastroenteritis. The patient's laboratory parameters are essentially unremarkable. I do not point any more significant pathology. As long as the patient's symptoms are resolved, then no further workup is necessary. RECOMMENDATIONS: 1. Continue oral intake as tolerated. 2. Follow symptoms. 3. Flexible sigmoidoscopy to check the rectal findings. 4. Long-term bowel regimen as an outpatient. Thank you for asking me to participate in the care of this patient. Cristina Shaw M.D. DR: JESSICA JOB#: [id number] CC: GILLIAN
[2017-09-08] MEDS ORDERED: Lidocaine 1% MPF 10mg/ml 5ml ONE (07:00)
[2017-09-08] MEDS ORDERED: Propofol 200mg/20ml IV ONE (07:00)
--- NOTE | 2017-09-08 07:06 | Anethesia Preoperative Eval ---
Anesthesia Pre-op PMH/ROS General Date of Evaluation: Sep 08, 2017 Time of Evaluation: 06:50 Anesthesiologist: roxanna ASA Score: ASA 3 Mallampati Score Class I : Soft palate, uvula, fauces, pillars visible Class II: Soft palate, uvula, fauces visible Class III: Soft palate, base of uvula visible Class IV: Only hard plate visible Mallampati Classification: Class II Surgeon: paolo Diagnosis: gastroenteritis, proctitis Surgical Procedure: flexible sigmoidoscopy Anesthesia History: none Social History: smoking - nonsmoker Family History: no anesthesia problems Allergies: Coded Allergies: No Known Allergies (Unverified , 09/06/17) Medications: see eMAR Past Medical History Cardiovascular: Reports: HTN Neurologic/Psychiatric: Reports: dementia Anesthesia Pre-op Phys. Exam Physician Exam Last Vital Signs Date Time Temp Pulse Resp B/P (MAP) Pulse Ox O2 Delivery O2 Flow Rate FiO2 09/08/17 04:00 97.0 47 18 142/75 93 Room Air Constitutional: NAD Neurologic: CN 2-12 intact Cardiovascular: RRR Respiratory: CTA Airway Exam Mallampati Score: Class II MO: full Neck: supple TMD: 2fb ROM: full Teeth: intact Anesthesia Pre-op A/P Labs Hematology Test 09/07/17 07:30 09/08/17 05:50 White Blood Count 6.2 K/UL (4.8-10.8) Pending Red Blood Count 3.96 M/UL (4.20-5.40) L Pending Hemoglobin 11.5 G/DL (12.0-16.0) L Pending Hematocrit 35.5 % (37.0-47.0) L Pending Mean Corpuscular Volume 90 FL (80-99) Pending Mean Corpuscular Hemoglobin 29.2 PG (27.0-31.0) Pending Mean Corpuscular Hemoglobin Concent 32.5 G/DL (32.0-36.0) Pending Red Cell Distribution Width 13.6 % (11.6-14.8) Pending Platelet Count 195 K/UL (150-450) Pending Mean Platelet Volume 6.6 FL (6.5-10.1) Pending Neutrophils (%) (Auto) 68.5 % (45.0-75.0) Pending Lymphocytes (%) (Auto) 21.0 % (20.0-45.0) Pending Monocytes (%) (Auto) 8.6 % (1.0-10.0) Pending Eosinophils (%) (Auto) 1.3 % (0.0-3.0) Pending Basophils (%) (Auto) 0.6 % (0.0-2.0) Pending Chemistry Test 09/07/17 07:30 09/08/17 05:50 Sodium Level 143 MMOL/L (136-145) Pending Potassium Level 3.2 MMOL/L (3.5-5.1) L Pending Chloride Level 108 MMOL/L (98-107) H Pending Carbon Dioxide Level 27 MMOL/L (21-32) Pending Anion Gap 8 (5-15) Blood Urea Nitrogen 16 mg/dL (7-18) Pending Creatinine 0.9 MG/DL (0.55-1.30) Pending Estimat Glomerular Filtration Rate mL/min (>60) Pending Glucose Level 95 MG/DL (74-106) Pending Calcium Level 8.3 MG/DL (8.5-10.1) L Pending Risk Assessment & Plan Assessment: asa3 Plan: mac Status Change Before Surgery: No Pre-Antibiotics Drug: ARIN Morgan Sep 08, 2017 07:06
[2017-09-08 07:11] LABS: ANION GAP 4 (5-15); CALCIUM 8.1 MG/DL (8.5-10.1); CARBON DIOXIDE 29 MMOL/L (21-32); CHLORIDE 102 MMOL/L (98-107); CREATININE 0.8 MG/DL (0.55-1.30); POTASSIUM 2.9 MMOL/L (3.5-5.1); SODIUM 135 MMOL/L (136-145)
--- NOTE | 2017-09-08 07:14 | Pre-Procedure Note/Attestation ---
Pre-Procedure Note/Attestation Complete Prior to Procedure Planned Procedure: not applicable Procedure Narrative: flex sig Indications for Procedure Pre-Operative Diagnosis: abnormal CT Attestation I attest that I discussed the nature of the procedure; its benefits; risks and complications; and alternatives (and the risks and benefits of such alternatives ), prior to the procedure, with the patient (or the patient's legal service representative). I attest that, if there was a reasonable possibility of needing a blood transfusion, the patient (or the patient's legal service representative) was given the [facility] standardized written summary, pursuant to the Janusz Julieta Blood Safety Act ([place] Health and Safety Code # 1645, as amended). I attest that I re-evaluated the patient just prior to the surgery and that there has been no change in the patient's H&P, except as documented below: KRISTIAN BOB Sep 08, 2017 07:14
[2017-09-08] MEDS ORDERED: Midazolam 2mg/2ml Inj IVP PRN (07:15)
[2017-09-08] MEDS ORDERED: Atropine Inj 1mg/10ml Syr IV PRN (07:15)
[2017-09-08] MEDS ORDERED: fentaNYL 100 mcg/2 mL IV PRN (07:15)
[2017-09-08] MEDS ORDERED: DiphenhydrAMINE 50mg/ml Inj IVP PRN (07:15)
[2017-09-08 07:18] LABS: EOSINOPHILS % (AUTO) 2.5 % (0.0-3.0); MEAN CORPUSCULAR HEMOGLOBIN 29.7 PG (27.0-31.0); MEAN CORPUSCULAR HGB CONC 33.2 G/DL (32.0-36.0); MEAN CORPUSCULAR VOLUME 90 FL (80-99); MEAN PLATELET VOLUME 6.7 FL (6.5-10.1); MONOCYTES % (AUTO) 10.3 % (1.0-10.0); NEUTROPHILS % (AUTO) 41.2 % (45.0-75.0); PLATELET COUNT 178 K/UL (150-450); RED BLOOD COUNT 3.91 M/UL (4.20-5.40); RED CELL DISTRIBUTION WIDTH 13.6 % (11.6-14.8)
--- NOTE | 2017-09-08 07:36 | General Progress Note ---
Assessment/Plan Assessment/Plan Assessment - Chronic constipation - Acute/ resolved N/V/D - ? gastroenteritis - h/o rectal stool impaction - rectal inflammation - possibly solitary rectal ulcer - Dementia - low K Recommendation - po diet - as tolerated - correction Mirlax - follow symptoms - Flex sig today - replace K POST PROCEDURE - mild rectosigmoid erythema - sigmoid diverticulosis - no rectal ulcer or malignancy - Will resume PO diet Subjective Allergies: Coded Allergies: No Known Allergies (Unverified , 09/06/17) Subjective Feels OK no new symptoms d/w DTR at bedside labs noted Objective Last 24 Hour Vital Signs Date Time Temp Pulse Resp B/P (MAP) Pulse Ox O2 Delivery O2 Flow Rate FiO2 09/08/17 04:00 97.0 47 18 142/75 93 Room Air 09/08/17 00:00 98.1 43 20 139/67 91 Room Air 09/07/17 20:00 98.1 49 18 134/60 93 Room Air 09/07/17 16:07 98.2 56 16 157/74 96 Room Air 09/07/17 12:02 98.0 50 18 134/61 95 Room Air 09/07/17 08:00 98.4 88 18 132/66 95 Room Air Laboratory Tests 09/08/17 05:50: White Blood Count [Pending], Red Blood Count [Pending], Hemoglobin [Pending], Hematocrit [Pending], Mean Corpuscular Volume [Pending], Mean Corpuscular Hemoglobin [Pending], Mean Corpuscular Hemoglobin Concent [Pending], Red Cell Distribution Width [Pending], Platelet Count [Pending], Mean Platelet Volume [ Pending], Neutrophils (%) (Auto) [Pending], Lymphocytes (%) (Auto) [Pending], Monocytes (%) (Auto) [Pending], Eosinophils (%) (Auto) [Pending], Basophils (%) (Auto) [Pending], Sodium Level 135L, Potassium Level 2.9L, Chloride Level 102, Carbon Dioxide Level 29, Anion Gap 4L, Blood Urea Nitrogen 16, Creatinine 0.8, Estimat Glomerular Filtration Rate , Glucose Level 117H, Calcium Level 8.1L Height (Feet): 5 Height (Inches): 5.00 Weight (Pounds): 110 Objective Thin WW NCAT supple CTA RRR soft ND NT no edema non focal KRISTIAN BOB Sep 08, 2017 07:36
--- NOTE | 2017-09-08 07:38 | Endoscopy Procedure Note ---
Endoscopy Procedure Note Indication for Procedure: abnormal CT Procedures Performed: flexible sigmoidoscopy Operative Findings/Diagnosis: diverticulosis Specimen: none Pt Tolerated Procedure Well: Yes Estimated Blood Loss: none Anesthesiologist: Jennifer garcia Anesthesia: MAC Medication Given: see anesthesia record Implant(s) used?: No 50 yrs or older w/o bx or poly: Not Applicable 10yrs. F/U not recommended: Not Applicable If not recommended, why?: KRISTIAN BOB Sep 08, 2017 07:38
--- NOTE | 2017-09-08 07:39 | Brief Operative Note ---
Immediate Post Operative Note Operative Note Chief Complaint: abnormal CT Pre-op Diagnosis: abnormal CT Procedure: flex sig Post-op Diagnosis: - mild rectosigmoid erythema - sigmoid diverticulosis - no rectal ulcer or malignancy Surgeon: paolo Anesthesiologist: isabel Anesthesia: MAC Specimen: none Complications: none Condition: stable Fluids: see notes Estimated Blood Loss: none Drains: none Implant(s) used?: No KRISTIAN BOB Sep 08, 2017 07:39
[2017-09-08] MEDS ORDERED: KCl 10% 40mEq/30ml liquid NG ONE (07:45)
[2017-09-08] MEDS: Nuedexta Capsule 20/10mg ORAL SCH (08:57)
[2017-09-08] MEDS: LUMIGAN 0.01% BOTH EYES SCH (08:58)
--- NOTE | 2017-09-08 10:39 | Immediate Post-Op Evaluation ---
Immediate Post-Op Evalulation Immediate Post-Op Evalulation Procedure: flexible sigmoidoscopy Date of Evaluation: Sep 08, 2017 Time of Evaluation: 07:47 IV Fluids: 0.9ns 50ml Blood Products: none Estimated Blood Loss: negligible Blood Pressure Systolic: 149 Blood Pressure Diastolic: 66 Pulse Rate: 41 Respiratory Rate: 18 O2 Sat by Pulse Oximetry: 99 Temperature (Fahrenheit): 97.7 Pain Score (1-10): 0 Nausea: No Vomiting: No Complications none Patient Status: awake, reacts, patent Hydration Status: adequate Drug: ARIN Morgan Sep 08, 2017 10:39
--- NOTE | 2017-09-08 10:40 | 48 Hour Post Anesthesia Eval ---
Post Anesthesia Evaluation Procedure: flexible sigmoidoscopy Date of Evaluation: Sep 08, 2017 Time of Evaluation: 10:39 Blood Pressure Systolic: 161 0: 83 Pulse Rate: 46 Respiratory Rate: 18 Temperature (Fahrenheit): 97.7 O2 Sat by Pulse Oximetry: 99 Airway: patent Nausea: No Vomiting: No Pain Intensity: 0 Hydration Status: adequate Cardiopulmonary Status: stable Mental Status/LOC: patient returned to baseline Post-Anesthesia Complications: none Follow-up care needed: N/A ARIN KINGSLEY Sep 08, 2017 10:40
--- NOTE | 2017-09-08 15:34 | Geriatric Progress Note ---
Assessment/Plan Problems: (1) Volume depletion (2) Hypokalemia (3) Chronic constipation (4) Cognitive dysfunction (5) Depression (6) Proctitis Assessment/Plan Appears back to baseline. No specific rectal pathology. Hypokalemia, supplemented. Appears stable for d/c. Dictated #[id number] Discussed with: patient, family, hospital staff Subjective Interval Events Patient in good spirits, some lability associated with cognitive dysfunction, but smiling and in good spirits. Flex sig unremarkable, discussed with Dr. Shaw. No need for further antibiotic coverage. Constitutional: Denies: pain Respiratory: Denies: shortness of breath Cardiovascular: Denies: chest pain, palpitations Gastrointestinal/Abdominal: Denies: abdominal pain Genitourinary: Denies: dysuria Geriatric Geriatric Last 24 Hour Vital Signs Date Time Temp Pulse Resp B/P (MAP) Pulse Ox O2 Delivery O2 Flow Rate FiO2 09/08/17 11:25 97.5 50 12 154/79 96 Room Air 09/08/17 10:40 46 18 99 09/08/17 10:39 41 18 99 09/08/17 08:10 97.9 46 17 161/83 99 Room Air 09/08/17 07:49 46 17 163/73 99 Room Air 09/08/17 07:44 42 16 159/69 99 Simple Mask 6.0 09/08/17 07:39 97.7 42 17 149/69 99 Simple Mask 6.0 09/08/17 04:00 97.0 47 18 142/75 93 Room Air 09/08/17 00:00 98.1 43 20 139/67 91 Room Air 09/07/17 20:00 98.1 49 18 134/60 93 Room Air 09/07/17 16:07 98.2 56 16 157/74 96 Room Air Intake and Output 09/08/17 09/09/17 19:00 07:00 Intake Total 150 ml Balance 150 ml IV Total 150 ml Laboratory Tests Test 09/08/17 05:50 White Blood Count 5.0 K/UL (4.8-10.8) Red Blood Count 3.91 M/UL (4.20-5.40) L Hemoglobin 11.6 G/DL (12.0-16.0) L Hematocrit 35.1 % (37.0-47.0) L Mean Corpuscular Volume 90 FL (80-99) Mean Corpuscular Hemoglobin 29.7 PG (27.0-31.0) Mean Corpuscular Hemoglobin Concent 33.2 G/DL (32.0-36.0) Red Cell Distribution Width 13.6 % (11.6-14.8) Platelet Count 178 K/UL (150-450) Mean Platelet Volume 6.7 FL (6.5-10.1) Neutrophils (%) (Auto) 41.2 % (45.0-75.0) L Lymphocytes (%) (Auto) 45.0 % (20.0-45.0) Monocytes (%) (Auto) 10.3 % (1.0-10.0) H Eosinophils (%) (Auto) 2.5 % (0.0-3.0) Basophils (%) (Auto) 1.0 % (0.0-2.0) Sodium Level 135 MMOL/L (136-145) L Potassium Level 2.9 MMOL/L (3.5-5.1) L Chloride Level 102 MMOL/L (98-107) Carbon Dioxide Level 29 MMOL/L (21-32) Anion Gap 4 (5-15) L Blood Urea Nitrogen 16 mg/dL (7-18) Creatinine 0.8 MG/DL (0.55-1.30) Estimat Glomerular Filtration Rate mL/min (>60) Glucose Level 117 MG/DL (74-106) H Calcium Level 8.1 MG/DL (8.5-10.1) L Current Medications Medications (Trade) Dose Ordered Sig/Jillian Route PRN Reason Start Time Stop Time Status Last Admin Dose Admin Ciprofloxacin 200 ml @ 200 mls/hr Q12H IV 09/07/17 04:00 09/14/17 03:59 09/08/17 05:08 Dextromethorphan/ Quinidine (Nuedexta Capsule) 1 cap Q12HR ORAL 09/06/17 21:00 10/06/17 20:59 09/08/17 08:57 Donepezil HCl (Aricept) 5 mg QHS ORAL 09/06/17 21:00 10/06/17 20:59 09/07/17 20:08 Escitalopram Oxalate (Lexapro) 10 mg DAILY ORAL 09/07/17 09:00 10/07/17 08:59 09/08/17 08:57 Metronidazole 100 ml @ 100 mls/hr Q8H IVPB 09/07/17 03:00 09/14/17 02:59 09/08/17 10:40 Patient Own Medication (Patient's Own Med) 1 ea Q12HR BOTH EYES 09/06/17 21:00 10/06/17 20:59 09/08/17 08:58 Polyethylene Glycol (Miralax) 17 gm BEDTIME ORAL 09/08/17 21:00 10/08/17 20:59 Ramelteon (Rozerem) 8 mg QHS ORAL 09/06/17 21:00 10/06/17 20:59 09/07/17 20:08 Height (Feet): 5 Height (Inches): 5.00 Weight (Pounds): 110 General Appearance: alert, non-toxic Head: normocephalic, atraumatic Eyes: bilateral anicteric ENT: normal voice Neck: full range of motion, no mass Respiratory: lungs clear Cardiovascular: regular rate, rhythm Gastrointestinal: normal bowel sounds, non tender, soft, no mass, no organomegaly Musculoskeletal: no calf tenderness Edema: trace edema - LEs Neurologic: no new focality CAR MARTINEZ Sep 08, 2017 15:34
[2017-09-08] MEDS ORDERED: NS 275ml ONE (18:56)
[2017-09-08] MEDS ORDERED: Tubing IV Secondary IV ONE ×2 (18:56)
[2017-09-08] MEDS ORDERED: Miralax 17gm pkt ORAL SCH (21:00)
--- NOTE | 2017-09-09 02:32 | Discharge Summary ---
DATE OF ADMISSION: 09/06/2017 DATE OF DISCHARGE: 09/08/2017 DISCHARGE DIAGNOSES: 1. Vomiting and diarrhea associated with gastroenteritis, either viral or food associated. 2. Abnormal finding on abdominal CT suggestive of inflammatory proctitis with negative flexible sigmoidoscopy. 3. Volume depletion associated with gastrointestinal symptoms, resolved. 4. History of cognitive changes with significant language abnormalities and labile affect, possibly vascular in nature. 5. Anxious depression associated with cognitive dysfunction. 6. Sleep disorder associated with above. 7. History of small bowel obstruction associated with lower abdominal hernia, status post repair with mesh insertion. 8. Status post hysterectomy for tumor with malignant potential. 9. Chronic constipation. 10. Glaucoma. 11. Vitamin D deficiency. 12. Vitamin B12 deficiency. HISTORY OF PRESENT ILLNESS: The patient is an 86-year-old woman, who presented with diarrhea and vomiting and was brought to the emergency room. Details of the history and physical examination are per the dictation of 09/06/2017. HOSPITAL COURSE: Because of the abnormal findings on the CT scan of the abdomen, there was concern of infectious proctitis and the patient was placed on empiric ciprofloxacin and Flagyl. She eventually underwent flexible sigmoidoscopy by Dr. Cristina Shaw with no evidence of significant pathology and it was felt that the findings were either artifactual or perhaps represented only mild inflammatory process associated with transient irritation. The patient has had severe constipation and this had actually improved over recent weeks on bowel regimen and for this time, this appeared to be adequately managed. The patient did have an element of volume depletion associated with her diarrhea and vomiting which resolved with intravenous hydration. She also had hypokalemia probably associated with same factors which was supplemented. Although initially there was no report of any individuals with similar gastrointestinal symptoms in her environment, a little over a day after the patient was admitted to the hospital, the patient's daughter reported that she also developed some symptoms of nausea and loose stool suggesting that there was either viral gastroenteritis or perhaps food-associated gastroenteritis which had affected the patient. While the patient was in the hospital, she received Rozerem to diminish the risk of delirium and appeared to respond well to this. At this point, the patient appears stable to return to her [facility] for outpatient followup. MEDICATIONS: Her medications will include vitamin C 500 mg daily, Lumigan 2.5 mL drops 1 drop both eyes nightly, Dulcolax 5 mg daily, calcium carbonate and vitamin D daily, vitamin D3 1000 units daily, vitamin B12 1000 mcg daily, Nuedexta 20/10 b.i.d., Lexapro 10 mg daily, MiraLAX 17 g b.i.d., and trazodone 50 mg nightly. FOLLOWUP: The patient will be followed up in the office as an outpatient. Jamel Cedeno M.D. DR: SAWYER JOB#: [id number] CC: GILLIAN
--- NOTE | 2017-09-09 03:17 | Procedure Note ---
DATE OF PROCEDURE: 09/08/2017 GASTROLOGY PROCEDURE REPORT PROCEDURE: Flexible sigmoidoscopy. SURGEON: Cristina Shaw M.D. ANESTHESIA: Please see the separate anesthesiologist notes for details. PRE-ENDOSCOPIC DIAGNOSIS: Abnormal CT scan with respect to the rectal area. POST-ENDOSCOPIC DIAGNOSES: 1. Normal rectum with no evidence of ulceration or other abnormalities. 2. Sigmoid diverticulosis. DESCRIPTION OF PROCEDURE: The procedure, its risks, indications, alternatives, and possible complications were explained to the family and informed consent was obtained. The patient was then sedated in the left lateral decubitus position and a rectal exam was done. The diagnostic sigmoidoscope was introduced into the rectum and advanced to 30 cm. Findings are as listed above. Retroflexed view of the rectum was otherwise unremarkable. The colonoscope was removed and the patient was sent to recovery in good condition. COMPLICATIONS: None. RECOMMENDATIONS: 1. Resume oral diet. 2. Continue conservative management. Cristina Shaw M.D. DR: AYALA JOB#: [id number] CC:
--- NOTE | 2017-09-17 15:51 | Cardiology Report ---
APPROVED REPORT EKG Measurement Heart [id number] CO [id number] [id number] Sinus bradycardia T wave abnormality, consider anterior ischemia Abnormal ECG
== END 2017-09-08 18:57 | disposition home or self-care (01) | DRG 392 ==
LOC: EMR 11:20 → 3E 15:34 → EDBEDREQ 15:56 → EMR 17:15 → 3E 22:34 → 4W 09-07 11:10
PROC: 0DJD8ZZ Inspection of Lower Intestinal Tract, Via Natural or Artificial Opening Endoscopic (ICD-10-PCS; principal; 2017-09-08 07:24)
DX: A08.4 Viral intestinal infection, unspecified (principal); E86.9 Volume depletion, unspecified; F03.90 Unspecified dementia, unspecified severity, without behavioral disturbance, psychotic disturbance, mood disturbance, and anxiety; K62.6 Ulcer of anus and rectum; K57.30 Diverticulosis of large intestine without perforation or abscess without bleeding; K52.9 Noninfective gastroenteritis and colitis, unspecified; E87.6 Hypokalemia; K62.89 Other specified diseases of anus and rectum; F41.8 Other specified anxiety disorders; K59.00 Constipation, unspecified; E55.9 Vitamin D deficiency, unspecified; E53.8 Deficiency of other specified B group vitamins; H40.9 Unspecified glaucoma
CPT/HCPCS: 36415; 74177; 80048; 80053; 81003; 82962; 83605; 83690; 85025; 85610; 85730; 87040; 93005; 94003; 94150; 99285